=== PATIENT | female | born 1945 | race Caucasian/White ===

== ENCOUNTER 2025-05-07 14:13 | Inpatient (IN) | payer MEDICARE, OTHER ==
[~2025-05-07] VITALS: Ht 157.5 cm; Wt 62.1 kg
[~2025-05-07 14:13] MED LIST: ALENDRONATE SOD70 MG PO; BENZONATATE100 MG PO; GABAPENTIN300 MG PO; JARDIANCE25 MG PO; LEVOTHYROXINE50 MCG PO; LISINOPRIL10 MG PO; PREDNISONE20 MG PO; SIMVASTATIN20 MG PO; VENTOLIN HFA18 GM INH; WELLBUTRIN SR150 MG PO
[2025-05-07 16:12] LABS: BLOOD/HGB, URINE NEGATIVE (Negative); KETONE, URINE >=80 (Negative); LEUK ESTERASE, URINE NEGATIVE (negative); NITRITE, URINE NEGATIVE (negative)
[2025-05-07] MEDS ORDERED: HYDROmorphone HCL 1 MG/ML SYR IV PRN ×2 (16:15→18:30)
[2025-05-07 16:46] LABS: BASOPHILS 0.3 % (0.1-1.2); EOSINOPHILS 0.5 % (0.7-5.8); LYMPHOCYTES 15.6 % (19.3-51.7); MCH 30.1 PG (25.6-32.2); MCHC 32.4 g/dL (32.2-35.5); MCV 93.0 fL (79.4-94.8); MONOCYTES 9.1 % (4.7-12.5); NEUTROPHILS 74.3 % (34.0-71.1); RBC 5.11 M/uL (3.93-5.22)
[2025-05-07 17:04] LABS: ALT (SGPT) 25.0 U/L (14-59); AST (SGOT) 24.0 U/L (15-37); GLOMERULAR FILTRATION RATE,EST 75.0 mL/min (>60); PROTEIN, TOTAL 7.7 g/dL (6.4-8.2); UREA NITROGEN 24.0 mg/dL (7-18)
[2025-05-07] MEDS ORDERED: LIDOCAINE HCL 4% 1 EACH PATCH TD SCH (18:25)
[2025-05-07] MEDS ORDERED: ENOXAPARIN SODIUM 40 MG/0.4 ML SYR SUB-Q SCH (18:26)
[2025-05-07] MEDS ORDERED: DEXTROSE 50% 50 ML SYR IV PRN ×2 (18:30)
[2025-05-07] MEDS ORDERED: DEXTROSE 5% 1,000 ML IV PRN (18:30)
[2025-05-07] MEDS ORDERED: GLUCAGON,HUMAN RECOMBINANT 1 MG/ML VIAL SUB-Q PRN (18:30)
[2025-05-07] MEDS ORDERED: IBLOOD GLUCOSE TEST STRIP 1 EA TEST XX PRN (18:30)
[2025-05-07] MEDS ORDERED: HYDROCODONE/ACETA 5/325 TAB PO PRN (18:30)
[2025-05-07] MEDS ORDERED: LACTATED RINGER'S 1,000 ML IV SCH (18:30)
[2025-05-07] MEDS ORDERED: PROCHLORPERAZINE EDISYLATE 10 MG/2 ML VIAL IV PRN (18:30)
[2025-05-07] MEDS ORDERED: POLYETHYLENE GLYCOL 3350 1 PACKET PO PRN (18:30)
--- NOTE | 2025-05-07 20:02 | NUR ---
PT ARRIVED TO FLOOR FROM ER DURING SHIFT CHANGE. FLOAT RN ADMITTING PT. SAFETY PRECAUTIONS MAINTAINED. CALL LIGHT WITHIN REACH. WILL CONTINUE TO MONITOR.
[2025-05-07 20:44] VITALS: BP 122/62
[2025-05-07 20:46] VITALS: BP 122/62
[2025-05-07] MEDS ORDERED: LIDOCAINE PATCH REMOVAL 1 EA TD SCH (21:00)
[2025-05-07] MEDS ORDERED: INSULIN LISPRO 100 UNIT/ML ML SUB-Q SCH (21:00)
[2025-05-07] MEDS ORDERED: MELATONIN 3 MG TAB PO PRN (21:00)
[2025-05-07] MEDS ORDERED: IBLOOD GLUCOSE TEST STRIP 1 EA TEST VI SCH (21:00)
[2025-05-07] MEDS ORDERED: buPROPion HCL XL 150 MG TAB.XL.24H PO SCH (21:00)
--- NOTE | 2025-05-07 21:00 | NUR ---
PT ASSESSED AND MEDICATIONS GIVEN. VSS. PT STATED PAIN WAS 3/10. PT EDUCATED ON THE USE OF THE INCENTIVE SPIROMETER, PT VERBALIZED AND DEMONSTRATED UNDERSTANDING. PT REQUESTED TO USE A PUREWICK OVERNIGHT, PUREWICK PLACED. LEFT ARM IN SLING, GOOD PERFUSION NOTED IN EXPREMITY. SAFETY PRECAUTIONS MAINTAINED. CALL LIGHT WITHIN REACH. WILL CONTINUE TO MONITOR.
[2025-05-08] VITALS (9 sets, daily range): BP systolic 113–144; BP diastolic 51–68
--- NOTE | 2025-05-08 00:02 | NUR ---
PT ASSISTED TO BATHROOM AND THEN TO THE RECLINER. PT WAS ABLE TO VOID IN TOILET. PT TOLERATED MOVEMENT WELL. SAFETY PRECAUTIONS MAINTAINED. CALL LIGHT WITHIN REACH. WILL CONTINUE TO MONITOR.
[2025-05-08 05:41] LABS: BASOPHILS 0.4 % (0.1-1.2); EOSINOPHILS 0.9 % (0.7-5.8); LYMPHOCYTES 20.6 % (19.3-51.7); MCH 30.8 PG (25.6-32.2); MCHC 32.9 g/dL (32.2-35.5); MCV 93.4 fL (79.4-94.8); MONOCYTES 10.2 % (4.7-12.5); NEUTROPHILS 67.5 % (34.0-71.1); RBC 4.52 M/uL (3.93-5.22)
[2025-05-08 05:51] LABS: GLOMERULAR FILTRATION RATE,EST 89.0 mL/min (>60); UREA NITROGEN 22.0 mg/dL (7-18)
--- NOTE | 2025-05-08 06:22 | NUR ---
PT WAS AWAKE THROUGHOUT ENTIRE SHIFT. PT STATED THAT THEY ARE UP AND AWAKE AT NIGHT AT HOME. VSS. PAIN MANAGED WITH NORCO. PT STATED THAT PAIN WAS MOSTLY A 3/10 WITH THE NORCO. PT SAT IN RECLINER OF THE SHIFT. PT UP SBA TO BATHROOM, VOIDING WELL. IVF INFUSING PER ORDERS. SAFETY PRECAUTIONS MAINTAINED. CALL LIGHT WITHIN REACH. WILL CONTINUE TO MONITOR.
[2025-05-08] MEDS ORDERED: LEVOTHYROXINE SODIUM 50 MCG TAB PO SCH (07:00)
[2025-05-08] MEDS ORDERED: METFORMIN HCL500 MG PO (07:08)
[2025-05-08] MEDS ORDERED: TRAZODONE HCL50 MG PO (07:08)
--- NOTE | 2025-05-08 07:21 | NUR ---
PATIENT AWAKE IN CHAIR WATCHING TV BREATHING EVEN AND UNLABORED. PATIENT LEFT ARM IN SLING ELEVATED BY PILLOW. NO REQUEST AT THIS TIME, CALL LIGHT IN REACH.
[2025-05-08] MEDS ORDERED: TRIAMCINOLONE A80 GM TOP (09:50)
--- NOTE | 2025-05-08 10:24 | NUR ---
PATIENT SITTING UP IN RECLINER, ALERT AND ORINTED. SLING IN PLACE ON LUE ELEVATED WITH PILLOW. LR INFUSING. NO REQUESTS AT THIS TIME. CALL LIGHT IN REACH.
--- NOTE | 2025-05-08 10:56 | NUR ---
PT IN CHAIR, LINEN CHANGE COMPLETED. AM CARE COMPLETED. EXTRA PILLOWS USED FOR PT COMFORT. WARM BLANKET REQUESTED FOR COMFORT. CALL LIGHT WITHIN REACH OF PT, WELL FRESH ICE WATER AND PT'S PHONE. PT REPORTS NEEDING NOTHIN GMORE AT THIS TIME.
--- NOTE | 2025-05-08 11:18 | NUR ---
medications reconciled
[2025-05-08] MEDS ORDERED: PHARMACY RENAL DOSE ADJUSTMENT 1 DOSE MISC PO SCH (12:00)
--- NOTE | 2025-05-08 12:47 | NUR ---
PATIENT UP IN RECLINER EATING LUNCH, WATCHING TV. BED IN SLING ELEVATED WITH A PILLOW. IV FLUIDS RUNNING. NO REQUESTS AT THIS TIME. CALL LIGHT IN REACH.
--- NOTE | 2025-05-08 14:43 | NUR ---
PATIENT UP IN RECLINER, ALERT AND ORIENTED. PATIENT EDUCATED ON IMPORTANCE OF IS USE. PATIENT HAS NO REQUESTS AT THIS TIME. CALL LIGHT IN REACH.
--- NOTE | 2025-05-08 15:05 | NUR ---
PT SITTING IN CHAIR, AWAKE AND ALERT. PT HAS FRESH ICE WATER ON THE TABLE NEAR WHERE SHE IS SITTING. TV OFF, NO VISITORS. CALL LIGHT WITHIN REACH OF PT. PT REPORTSD NEEDING NOTHING MORE AT THIS TIME.
--- NOTE | 2025-05-08 15:09 | NUR ---
LINEN CHANGE COMPLETED, PT IN CHAIR. ROOM CLEANED AND TRASH REMOVED. GOT PT WARM BLANKET, FRESH ICE WATER, AND CALL LIGHT WITHIN REACH OF PT IN CHAIR. PT REPORTS NEEDING NOTHING MORE AT THIS TIME.
--- NOTE | 2025-05-08 17:43 | NUR ---
PATIENT ASSISTED TO THE RESTROOM BY THIS RN. PATIENT HAD A BOWEL MOVEMENT. ASSISTED BACK TO CHAIR. ARM IN SLING ELEVATED ON PILLOW. PATIENT STATES "I AM AFRAID I AM GOING TO GET PNEUMONIA AND " PATIENT REASSURED AND EDUCATED ON THE IMPORTANCE OF IS USE, AFTER EDUCATION PATIENT SEEMED CALM AND RELAXED. NO FURTHER REQUESTS AT THIS TIME. CALL LIGHT IN REACH.
--- NOTE | 2025-05-08 18:07 | NUR ---
PT SITTING IN CHAIR, REPORTED FEELING "OK STILL." TV ON, NO VISITORS IN THE ROOM. PT HAS ICE WATER ON THE TABLE NEXT TO HER CHAIR, AND THE CALL LIGHT WITHIN REACH. PT REPORTED NEEDING NOTHING MORE AT THIS TIME.
--- NOTE | 2025-05-08 18:10 | NUR ---
PT REFUSED A BED BATH OR WARM WASH CLOTH TO THE FACE. PT ALSO REFUSED THIS AMBULANCE DRIVER PARAMEDIC BRUSHING HER HAIR. PT STATED "MAYBE LATER", BUT DURING DAY SHIFT KEP REFUSING WHEN ASKED. PT SITTING IN CHAIR WITH WARM BLANKET FOR COMFORT. CALL LIGHT WITHIN REACH AND NOTHING MORE REQUESTED AT THIS TIME.
--- NOTE | 2025-05-08 19:27 | NUR ---
PATIENT IN RECLINER COMPLAINS OF PAIN IN THE SHOULDER. NORCO GIVEN FOR PAIN (SEE EMAR). VIRIDIANA CHACON IN THE ROOM ASSITING PATIENT TO THE BATHROOM.
--- NOTE | 2025-05-08 19:46 | NUR ---
REPORT RECEIVED FROM YAEL SAUCEDO AND YAEL HE. PATIENT SITTING IN CHAIR, RESPIRATIONS EVEN AND UNLABORED. SHE RATES PAIN AN 8/10, JUST GIVEN PRN PAIN MEDICATION FROM DAYSHIFT RN. WILL REASSESS. NO FURTHER NEEDS AT THIS TIME, CALL LIGHT IN REACH
--- NOTE | 2025-05-08 21:15 | NUR ---
VS OBTAINED AND RECORDED, ASSESSMENT COMPLETED. PATIENT UP IN CHAIR, REPORTS 5/10 PAIN WHICH IS AN IMPROVEMENT FROM PREVIOUS. SHE STATES SHE IS COMFORTABLE IN THE CHAIR AT THIS TIME. RESPIRATIONS EVEN AND UNLABORED, PATIENT IS WEARING A SLING ON THE LEFT ARM. SCHEDULED MEDICATION GIVEN PER ORDER, LIDOCAINE PATCH REMOVED. PATIENT DENIES FURTHER NEEDS AT THIS TIME, CALL LIGHT IN REACH
--- NOTE | 2025-05-08 23:00 | NUR ---
CALL LIGHT ANSWERED, IN ROOM TO ASSIST PATIENT. PATIENT REPORTS ITCHINESS AND REDNESS IN HER GROIN, GROIN ASSESSED, REDNESS NOTED. PATIENT USING MOISTURIZING LOTION ON AREA THAT SHE PREFERS TO APPLY HERSELF. DECLINES OTHER NEEDS, CALL LIGHT IN REACH
--- NOTE | 2025-05-08 23:25 | NUR ---
ASSISTED PATIENT TO THE BATHROOM AND BACK TO CHAIR. PATIENT VOIDED 200ML YELLOW URINE. CALL LIGHT AND SIDE TABLE WITHIN PATIENT'S REACH. ROOM LIGHT OFF PER PATIENT'S REQUEST.
--- NOTE | 2025-05-09 01:50 | NUR ---
ROUNDED ON PATIENT, PATIENT SITTING UPRIGHT IN CHAIR PER REQUEST. SHE REPORTS 8/10 PAIN, PRN PAIN MEDICATION GIVEN PER REQUEST. NEW IV FLUID BAG HUNG. SHE DENIES OTHER NEEDS, CALL LIGHT IN REACH.
--- NOTE | 2025-05-09 02:58 | NUR ---
ROUNDED ON PATIENT, PATIENT AWAKE AND REMAINS IN CHAIR PER HER REQUEST. SHE STATES THAT SHE FEELS THAT HER PAIN IS IMPROVING BUT SHE IS STILL VERY SORE. SHE DENIES ANY NEEDS, CALL LIGHT IN REACH
--- NOTE | 2025-05-09 04:19 | NUR ---
ROUNDED ON PATIENT, PATIENT RESTING WITH EYES CLOSED, RESPRIATIONS EVEN AND UNLABORED. IVF CONTINUING TO INFUSE WITHOUT DIFFICULTY. NO NEEDS IDENTIFIED, CALL LIGHT IN REACH
[2025-05-09 05:21] VITALS: BP 123/60
[2025-05-09 05:36] VITALS: BP 123/60
--- NOTE | 2025-05-09 06:13 | NUR ---
ROUNDED ON PATIENT, PATIENT SITTING UP IN CHAIR PER REQUEST, REPOSITIONED PILLOWS BEHIND BACK FOR COMFORT. RESPIRATIONS EVEN AND UNLABORED. IV WNL, MSK ASSESSMENT UNCHANGED. PATIENT DENIES FURTHER NEEDS, CALL LIGHT IN REACH
--- NOTE | 2025-05-09 06:45 | NUR ---
2 MN FOR VERSALUS-PER BAR POINTER MEETS INPATIENT FOR HYPOXIA SECONDARY TO RIB FRACTURES WITH NEED FOR SUPPLEMENTAL 02 MEDICARE INPT 05/07/25 @ 1827 ORDER MATCHES REG NO AUTH REQUIRED PER MEDICARE GUIDELINES DISCHARGE PENDING FURTHER PT. SNF VS HOME HEALTH
--- NOTE | 2025-05-09 07:40 | NUR ---
VERBAL REPORT RECIEVED BY YAEL AYALA. PATIENT UP IN RECLIENER RESTING, BREATHING EVEN AND UNLABORED. CALL LIGHT IN REACH.
--- NOTE | 2025-05-09 08:45 | NUR ---
MORNING ASSESSMENT AND MEDICATIONS COMPLETE. LEFT ARM IN SLING ELEVATED ON PILLOW. PAIENT COMPLAINS OF LEFT SHOULDER 7/10 PAIN, PAIN MEDICATION GIVEN (SEE EMAR). PATIENT RESTING IN RECLINER, WARM BLANKET PROVIDED PER REQUEST. CALL LIGHT IN REACH.
[2025-05-09 10:02] VITALS: BP 139/66
--- NOTE | 2025-05-09 10:40 | NUR ---
Spoke with Khalida and her Daughter, November. Pt lives in town with spouse in a home without any steps. She does not use any DME. Pt has a brace on her arm/shoulder and has fx ribs. Pt is now on oral pain meds. Discussed with pt PT/OT are recommending a SNF for rehab. Pt begins to cry loudly stating I have to speak with her . Daughter attempts to encourage mom to go to a SNF for a few days. Pt cries louder. Daughter is a nurse at [employer]. I let them know I can return later when the spouse returns. Pt denies any financial or safety concerns.
--- NOTE | 2025-05-09 10:45 | NUR ---
IN ROOM TO CHECK ON PATIENT, PATIENT SITTING IN THE RECLINER. PATIENT TEARFUL DUE TO FEARS OF DISCHARGE. DISCUSSED WITH PATIENT WE WILL TALK TO CASE MANAGEMENT REGARDING POC. FRESH WATER PROVIDED. FAMILY IN THE ROOM. CALL LIGHT IN REACH.
--- NOTE | 2025-05-09 11:00 | NUR ---
PATIENT USES CALL LIGHT FOR ASSITANCE TO THE BATHROOM. PATIENT ASSISTED TO THE BATHROOM BY THIS RN. PATIENT ASSISTED BACK TO RECLINER VIA SBA. LEFT ARM IN SLING, ELEVATED WITH PILLOW. NO FURTHER REQUESTS AT THIS TIME. CALL LIGHT IN REACH.
--- NOTE | 2025-05-09 11:15 | NUR ---
Notified by staff, pts spouse has returned. Returned to the room. Spoke with pt, spouse, and daughter. Pt stating she cannot go home today. I let them know this is up to the Dr. I let them I know I did discuss with the and he planned on dc today if they did not want a SNF. Pt begins crying and stating she cannot go home. I let her know, we are waiting for Dr. Haddad to visit to see what he says. Spouse is very angry and stating, "we are about to go to war". He is requesting I tell Dr. Diego he must admit the pt. I let him know I cannot speak for Dr. Diego or give orders. I let them know I will pass their requests on. We again discussed pt is taking oral pain meds. These can be taken at home. Daughter is now stating she will take a few days off and stay with mom. Spouse states he can assist, but cannot do everything. Spouse remains very angry. I again let them know, I will pass their info on to the
--- NOTE | 2025-05-09 11:30 | NUR ---
Updated Dr. Diego of my conversation. He states he has spoken with the family and let them know he works for the pt as the spouse was angry with him also. He will return at 2 pm to speak with the pt. He will give a dose of IV pain meds and meds for anxiety if needed.
--- NOTE | 2025-05-09 12:37 | NUR ---
PT NOT AVAILABLE FOR VISIT. PROVIDED PRAYER.
--- NOTE | 2025-05-09 13:19 | NUR ---
ICE PACK APPLIED TO LEFT SHOULDER. PT C/O PAIN 01/01, REQUESTING PAIN MEDICATIONS. PT MEDICATED WITH 2 OXYCODONE TABLETS. SITTING UP IN CHAIR, DTR IN ROOM. CHAIR RECLINED, WHEELS LOCKED. CALL MACIEL IN REACH. PT INSTRUCTED TO CALL FOR ASSISTANCE.
[2025-05-09 13:24] VITALS: BP 138/67
--- NOTE | 2025-05-09 14:41 | NUR ---
PATIENT RESTING IN RECLINER, BREATHING EVEN AND UNLABORED. PATIENT FAMILY IN THE ROOM. SLING ON LEFT ARM, ELEVATED ON A PILLOW, ICE APPLIED. CALL LIGHT IN REACH.
--- NOTE | 2025-05-09 14:45 | NUR ---
Spoke with Dr Haddad. He saw this pt and feels she needs two more days of therapy prior to dc. I then saw Khalida's spouse, Sukh. I updated, Dr. Haddad is recommended two more days. He still is not pleases. He stated, "So you're saying I can call off my laywers from suing you." I replied, "you may do whatever you feel you need to do". Daughter denies needs, states, "sorry".
--- NOTE | 2025-05-09 14:50 | NUR ---
Updated Dr. Diego I updated the family. He requests I return to the room with him. Sukh has left. Pt is sleeping as she was given pain meds. Daughter, Dr. Diego, and I spoke. He again updated the daughter Dr. Haddad feels this pt should stay another day or so. Daughter now stating she will take 10 days off to stay with mom. I let her know, ethan will be pts 3rd IP night. If at any time in the next 30 days she changes her mind and wants to go to a SNF, they can call Dr. Vicente and she will be eligible for placement.
--- NOTE | 2025-05-09 15:46 | NUR ---
IN ROOM WITH PATIENT. PATIENT DOES NOT WANT ICE APPLIED AT THIS MOMENT. EDUCATED ON THE IMPORTANCE, WE WILL REAPPLY IN 30 MINUTES. REQUESTING PAIN PILL. DISCUSSED PRN PAIN MEDICATION SCHEDULE. NO FURTHER NEEDS AT THIS TIME. CALL LIGHT IN REACH
--- NOTE | 2025-05-09 16:00 | NUR ---
PATIENT UP IN RECLINER, NO NEEDS AT THIS TIME. CALL LIGHT IN REACH.
--- NOTE | 2025-05-09 17:58 | NUR ---
PATIENT UP IN RECLINER TALKING WITH FAMILY. FRESH ICE PACK APPLIED TO LEFT SHOULDER. PATIENT REPORTS NO PAIN AT THIS TIME. CALL LIGHT IN REACH.
[2025-05-09 18:14] VITALS: BP 123/58
--- NOTE | 2025-05-09 19:37 | NUR ---
REPORT RECEIVED FROM DAY SHIFT RN. PT SITTING IN RECLINER ALERT AND ORIENTED. REPORTS LEFT SIDE PAIN 02/01. PRN FOR PAIN ADMIN PER EMAR. NO FURTHER NEEDS. DAUGHTER IN ROOM. WHITE BOARD UPDATED. CALL LIGHT IN REACH.
[2025-05-09 21:17] VITALS: BP 129/72
--- NOTE | 2025-05-09 21:38 | NUR ---
CALL LIGHT ANSWERED. SBA WITH QUAD CANE TO RESTROOM FOR VOID. pt DENIES ORAL CARE OFFERED. BACK TO CHAIR. ARM ELEVATED ON PILLOW AND IN SLING. NEW ICE PACK PLACED ON L CLAVICLE. VSS. CBG 112. PRIMARY RN AMX NOW IN ROOM.
--- NOTE | 2025-05-09 21:48 | NUR ---
EVENING ASSESSMENT COMPLETE. SCHEDULED MEDS ADMIN PER EMAR. PT REPORTS LEFT SHOULDER/RIB PAIN TOLERABLE 03/03. LEFT ARM IN SLING. ICE PACK IN PLACE. CMS INTACT. BRISK CAP REFILL NOTED. PT REQUESTING TO SLEEP IN RECLINER. BLE ELEVATED. PT DENIES QUESTIONS OR CONCERNS. CALL LIGHT IN REACH.
--- NOTE | 2025-05-10 00:06 | NUR ---
PT SITTING UP IN CHAIR, C/O 8/10 PAIN TO LEFT SHOULDER AND SIDE, REQUESTING PAIN MEDICATION. PT MEDICATED WITH 2 OXYCODONE TABLETS. PT REMAINS IN CHAIR, RECLINED, WHEELS LOCKED. CALL MACIEL IN REACH. INSTRUCTED TO CALL FOR ASSISTANCE
--- NOTE | 2025-05-10 02:11 | NUR ---
PT RESTING IN RECLINER WITH EYES CLOSED. RESPIRATIONS EVEN. BLE ELVATED. LEFT ARM ELEVATED WITH PILLOWS. CALL LIGHT IN REACH.
--- NOTE | 2025-05-10 02:54 | NUR ---
CALL LIGHT ANSWERED. PT UP TO BR WITH QUAD WALKER AND SBA. GAIT STEADY. BACK TO RECLINER. LEFT ARM IN SLING ELEVATED ON PILLOW. ICE PACK PROVIDED. LEGS ELEVATED IN RECLINER. NO FURTHER NEEDS. CALL LIGHT IN REACH.
--- NOTE | 2025-05-10 03:46 | NUR ---
PT REPORTS LEFT SHOULDER/SIDE PAIN 04/03. PRN FOR PAIN ADMIN PER EMAR. NO FURTHER NEEDS.
[2025-05-10 05:31] VITALS: BP 100/51
--- NOTE | 2025-05-10 05:40 | NUR ---
PT RESTING IN RECLINER. AWAKENS EASILY. VS AND I&O OBTAINED. SCHEDULED MEDS ADMIN PER EMAR. PT DENIES NEEDS. CALL LIGHT IN REACH.
[2025-05-10 05:43] VITALS: BP 100/51
--- NOTE | 2025-05-10 07:05 | NUR ---
VERBAL REPORT RECIVED BY YAEL SANTANA. PT UP IN RESTROOM WITH VIRIDIANA SIBLEY IN THE ROOM. NO FURTHER NEEDS AT THIS TIME.
--- NOTE | 2025-05-10 08:20 | NUR ---
IN THE ROOM WITH PATIENT. DISCUSSED PLAN OF CARE WITH PATIENT. PATIENT HAS NO NEEDS AT THIS TIME. DISCUSSED WITH CASE MANAGMENT REGARDING TRANSPORTATION FOR DISCHARGE. PATIENT IN RECLINER, ARM IN SLING ELEVATED ON PILLOW. CALL LIGHT IN REACH.
[2025-05-10 08:49] VITALS: BP 118/55
--- NOTE | 2025-05-10 08:55 | NUR ---
Spoke with Khalida. She is wanting to go home. Daughter is on the phone. I let her know I told her the wrong cane yesterday. Per PT pt needs a quad cane. Daughter will slate picker from [employer]. IMM letter completed. Pt denies further needs. I let her know the van is scheduled for 10:15 for transport home. Pt thanks everyone for their assistance. She appologizes for her spouse is behavior. I assured her it is not an issues.
--- NOTE | 2025-05-10 09:09 | NUR ---
MORNING ASSESSMENT COMPLETE, PATIENT COMPLAINS OF 6/10 LEFT SHOULDER PAIN. PAIN MEDICATION GIVEN (PER EMAR). CASE MANAGEMENT DISCUSSING POC WITH PATIENT. VIRIDIANA GARNICA APPLIES FRESH ICE PACK ON LEFT SHOULDER. LEFT ARM IN SLING, ELEVATED ON PILLOW. NO FURTHER NEEDS AT THIS TIME. CALL LIGHT IN REACH.
[2025-05-10] MEDS ORDERED: HYDROCODON-ACE1 EA10 PO (09:43)
--- NOTE | 2025-05-10 10:00 | NUR ---
IN THE ROOM PATIENT DAUGHTER EXPRESSES CONCERN ABOUT PATIENT NOT RECIVING IV TORADOL. NOTFIED, VERBAL ORDERS RECIVED FOR ONE TIME IV PAIN MEDICATION. DAUGHTER DENIED NEW ORDERS DUE TO PATIENT APPEARING COMFORTABLE. DAUGHTER WAS CONCERNED DUE TO INSURANCES PURPOSES. GUY KEMP, ASSISTING PATIENT GETTING READY TO DISCHARGE.
[2025-05-10] MEDS ORDERED: ALPRAZOLAM1 MG PO (10:18)
--- NOTE | 2025-05-11 13:46 | NUR ---
RECEIVED CALL FROM DAUGHTER, NOVEMBER. PATIENT WAS TOLD SHE WOULD BE DC'D WITH HOME HEALTH. INFORMED DAUGHTER HOME HEALTH HAS UP TO 2 WEEKS TO SCHEDULE APPOINTMENTS, BUT WILL ENSURE IT HAS BEEN SET UP. NO REFERRAL NOTED IN THE CHART. REFERRAL FOR HOME HEALTH FAXED TO [facility].
== END 2025-05-10 10:10 | disposition home or self-care (01) | DRG 183 ==
LOC: ED 14:13 → MS 18:27
PROVIDERS: Emergency Medicine; ADMIT Student in an Organized Health Care Education/Training Program; ATTEND Student in an Organized Health Care Education/Training Program
DX: S22.42XA Multiple fractures of ribs, left side, initial encounter for closed fracture (principal); J96.01 Acute respiratory failure with hypoxia; S22.061A Stable burst fracture of T7-T8 vertebra, initial encounter for closed fracture; S42.032A Displaced fracture of lateral end of left clavicle, initial encounter for closed fracture; Z99.81 Dependence on supplemental oxygen; E03.9 Hypothyroidism, unspecified; F32.9 Major depressive disorder, single episode, unspecified; E11.22 Type 2 diabetes mellitus with diabetic chronic kidney disease; I12.9 Hypertensive chronic kidney disease with stage 1 through stage 4 chronic kidney disease, or unspecified chronic kidney disease; N18.9 Chronic kidney disease, unspecified; E78.5 Hyperlipidemia, unspecified; M81.0 Age-related osteoporosis without current pathological fracture; F41.9 Anxiety disorder, unspecified; R91.1 Solitary pulmonary nodule; E78.00 Pure hypercholesterolemia, unspecified; J20.9 Acute bronchitis, unspecified; Z79.890 Hormone replacement therapy; Z90.49 Acquired absence of other specified parts of digestive tract; Z79.899 Other long term (current) drug therapy; W18.30XA Fall on same level, unspecified, initial encounter
CPT/HCPCS: 36415; 51702; 70450; 71101; 71250; 73030; 80048; 80053; 81003; 83735; 85025; 96374; 97162; 97167; 97530; 97535; 99285-25; A9270; J1171; J1650; J1815; J7121; U0002

== ENCOUNTER 2025-07-08 05:55 | Day surgery (SDC) | payer MEDICARE, OTHER ==
[~2025-07-08] VITALS: Ht 157.5 cm; Wt 64.0 kg
--- NOTE | ~2025-07-08 | OR ---
[facility] [address], [place] [address] Draft DATE OF OPERATION: 07/08/2025 SURGEON: Glynn Galaviz MD PREOPERATIVE DIAGNOSES: 1. 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 2. Anxiety. POSTOPERATIVE DIAGNOSES: 1. 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 2. Anxiety. PROCEDURE: Right partial mastectomy (re-excision) right medial breast tissue. ANESTHESIA: General LMA; Madelyn Ding [employer] DESIGNER and local 10 mL of 0.25% Marcaine with epinephrine. INDICATION: This 79-year-old white woman is a patient of Dr. Azeb Vicente and recently underwent right partial mastectomy with sentinel lymph node biopsy by oh on June 16, 2025. The patient has an underlying significant anxiety disorder it is noted. Pathology report showed negative sentinel lymph node for metastatic disease and the lesion in question in the right breast showed invasive moderately differentiated infiltrating ductal carcinoma with low-grade ductal carcinoma in situ. Additional right-sided breast mass excision showed fibrofatty tissue negative for atypia. Margin status was positive on the excision of the tumor noted to be in the medial aspect for length of 1 mm. On the basis of need for a pathologically negative margin re-excision of breast tissue has been recommended. The risk of bleeding, infection, cosmetic deformity, and so forth were reviewed with her and her daughter, they understand and wished to proceed. FINDINGS: There was a seroma cavity in the medial aspect of the right breast. Excision of most of the skin and some amount of the previous cavity and additional tissue medial in the right breast was accomplished. A quilting closure type was used to diminish the space rather than a drain as the patient would be unlikely tolerant of that from an anxiety standpoint. PATIENT NAME: SABINO MARTINS OPERATIVE REPORT DATE OF : 49 REPORT #: [id number] PHYSICIAN: GLYNN GALAVIZ MD PCP: AZEB VICENTE MD REPORT IS CONFIDENTIAL AND NOT TO BE RELEASED WITHOUT AUTHORIZATION [facility] [address], [place] [address] Draft DESCRIPTION OF PROCEDURE: The patient was brought to the operating room, given a general LMA type anesthetic. Preoperative antibiotic Ancef was given and sequential compression device stockings used. The right breast was prepared with a chlorhexidine solution and draped sterilely. The incision was in the inframammary crease in the medial aspect. The area was marked with a pen. An elliptical incision was made incorporating essential all of the previous skin incision and extended more medially to normal breast parenchyma. Upon opening of the elliptical incision a seroma cavity was encountered and madelyn fluid was suctioned free. Wide resection was undertaken with electrocautery including more medial soft tissue. A portion of the biopsy cavity was excised in continuity. Irrigation was undertaken. Hemostasis was assured with electrocautery. Specimen was oriented with a short stitch, a single stitch medial and two stitches in the lateral position for orientation. Rather than placing a drain, which I would ordinarily do with the seroma cavity a quilting technique via overlying flap to underlying pectoralis was undertaken, closing the space quite markedly. The parenchyma that remained in the superior portion was secured to the parenchyma inferiorly with interrupted 2-0 Vicryl as well. The skin was closed with running subcuticular 3-0 Vicryl Steri-Strips were applied as was an Acticoat dressing. Blood loss was minimal. Complications none. MD ABDULAZIZ Esquivel/DOUGLAS /[id number] cc: zAeb Vicente MD Copies: ~ PATIENT NAME: SABINO MARTINS BELA OPERATIVE REPORT DATE OF : 49 REPORT #: [id number] PHYSICIAN: GLYNN GALAVIZ MD PCP: AZEB VICENTE MD REPORT IS CONFIDENTIAL AND NOT TO BE RELEASED WITHOUT AUTHORIZATION
[~2025-07-08 05:55] MED LIST changes: +ACETAMINOPHEN500 MG PO; +ALPRAZOLAM1 MG PO; +HYDROCODON-ACE1 EA10 PO; +IBUPROFEN600 MG PO; +LACTATED RINGER'S 1,000 ML IV SCH; +METFORMIN HCL500 MG PO; +OXYCODON-ACETA1 EAC2 PO; +TRAZODONE HCL50 MG PO; +TRIAMCINOLONE A80 GM TOP; +VITAMIN B12500 MCG PO; +VITAMIN B2100 MG PO; +VITAMIN D350 MCG PO
[2025-07-08 06:10] VITALS: BP 121/50
[2025-07-08] MEDS ORDERED: IBLOOD GLUCOSE TEST STRIP 1 EA TEST VI PRN (07:00)
[2025-07-08] MEDS ORDERED: LIDOCAINE HCL 1% 5 ML SDV INJ ONE (07:00)
[2025-07-08] MEDS ORDERED: MIDAZOLAM HCL 2 MG/2 ML VIAL ONE (07:27)
[2025-07-08] MEDS ORDERED: LIDOCAINE HCL 2% 5 ML SDV ONE (07:27)
[2025-07-08] MEDS ORDERED: fentaNYL citrate 100 MCG/2 ML VIAL ONE (07:27)
[2025-07-08] MEDS ORDERED: CEFAZOLIN SOD 1,000 MG/10 ML VIAL ONE (08:02)
[2025-07-08] MEDS ORDERED: ACETAMINOPHEN 500 MG TAB PO PRN (08:45)
[2025-07-08] MEDS ORDERED: NALOXONE HCL 0.4 MG SYR IV PRN (08:45)
[2025-07-08] MEDS ORDERED: LACTATED RINGER'S 1,000 ML IV SCH (08:45)
[2025-07-08] MEDS ORDERED: OXYCODONE/APAP 7.5/325 TAB PO PRN (08:45)
[2025-07-08] MEDS ORDERED: IBUPROFEN 600 MG TAB PO PRN (08:45)
--- NOTE | 2025-07-08 08:50 | NUR ---
07/08/25 0850 Glo Leyva 0888 PT ARRIVED TO PACU WITH ORAL AIRWAY AND 6L VIA MASK IN PLACE. RESP EVEN AND UNLABORED AND VSS.
[2025-07-08 09:19] VITALS: BP 114/48
--- NOTE | 2025-07-08 09:29 | NUR ---
0920-PT BACK TO ROOM FROM PACU ON . RECEIVED REPORT FROM NICKIE CONLEY. PT IS DROWSY. RESP EVEN AND UNLABORED. RATES PAIN 8/10, DENIES NAUSEA. PT TAKING SIPS OF WATER AND EATING A CRACKER. DAUGHTER AT BEDSIDE. CALL LIGHT WITHIN REACH. 0930-PAIN MEDICATIONS GIVEN PER EMAR.
[2025-07-08 10:21] VITALS: BP 123/60
--- NOTE | 2025-07-08 10:43 | NUR ---
LE 1014-PT UP TO RESTROOM. GAIT STEADY AND TOLERATED WELL. PT ABLE TO VOID 250ML OF YELLOW URINE. LE 1020-PT BACK TO ROOM. PT LAYING IN BED. RESP EVEN AND UNLABORED. DAUGHTER IN ROOM WITH PT. LE 1023-PT READY TO GO HOME. PT WILL GET DRESSED WITH THE HELP OF HER DAUGHTER. CALL LIGHT WITH IN REACH.
--- NOTE | 2025-07-08 10:49 | NUR ---
1031-WENT OVER DISCHARGE INSTRUCTIONS WITH PT AND DAUGHTER. RATES PAIN 12/02. NO RX GIVEN TODAY PT ALREADY HAS PAIN MEDICATION AT HOME. RIDE PROVIDED TO FRONT OF HOSPITAL WHERE DAUGHTER WAS WAITING WITH THE CAR.
[2025-07-08] MEDS ORDERED: SEVOFLURANE 250 ML BTL INH ONE (14:39)
--- NOTE | 2025-07-11 10:04 | PATH ---
[facility] [address], [place] [address] Signed SPECIMEN(S): A RIGHT BREAST SPECIMEN SOURCE: A. RIGHT BREAST CLINICAL HISTORY: Primary CA of right breast FINAL PATHOLOGIC DIAGNOSIS: Right reexcision of breast per requisition: - Benign skin and breast tissue with extensive fat necrosis, fibrosis, and chronic/histiocytic inflammation - Negative for residual in situ or invasive carcinoma BB MICROSCOPIC EXAMINATION: Histologic sections of all submitted blocks are examined by light microscopy. These findings, together with the gross examination, support the pathologic diagnosis. GROSS DESCRIPTION: The specimen, labeled and designated "Bebeto DianeLeighton, right reexcision of breast per requisition," is received in formalin and consists of a 34 g, 7 cm superior to inferior, 5.8 cm medial to lateral, 3.4 cm anterior to posterior portion of yellow lobulated fibroadipose tissue. The specimen is oriented as follows: Single stitch�medial, double stitch�lateral. On the anterior aspect there is a 6.1 x 1.7 cm portion of quinonez skin with a central 3.2 cm in length scar. Additionally there is a 6.7 x 4.2 x 3 cm previous excision cavity filled with chalky necrosis. The specimen is inked as follows: Superior�blue,, inferior�green, medial�red, lateral�orange, anterior (surrounding skin)�yellow, posterior�black, cavity�sammie. Of note on the posterior aspect there is a 2.3 x 1.3 cm central defect present. The specimen is serially sectioned from medial to lateral in 12 slices. There is some chalky necrosis within the biopsy cavity, but no discrete masses or lesions. The background parenchyma is comprised of 60% yellow lobulated adipose and 40% white-pink fibrous tissue. No biopsy cavity is identified. The specimen is entirely submitted as follows: Cassette Summary: PATIENT NAME: SABINO MARTINS PATHOLOGY DATE OF : 49 REPORT #: [id number] PHYSICIAN: ASHLEY PATHOLOGY PCP: EVELYN CABRERA MD REPORT IS CONFIDENTIAL AND NOT TO BE RELEASED WITHOUT AUTHORIZATION [facility] [address], [place] [address] Signed (A1) medial margin, slice 1, serially sectioned (A2-A3) slice 2 (A4-A5) slice 3 (A6-A7) slice 4 (A8) slice 5 (A9-A11) slice 6 (A12-A13) slice 7 (A14-A15) slice 8 (A16-A17) slice 9 (A18-A19) slice 10 (A20-A21) slice 11 (A22) lateral margin, slice 12, serially sectioned Time of collection: 8:15 AM 07/08/2025. Time into formalin: 8:21 AM 07/08/2025. Processor load time: 10 PM 07/08/2025. Ischemic time: 6 minutes Total fixation time in formalin: 13 hours 39 minutes The ASCO/CAP guidelines related to HER2 and hormone receptor testing in breast specimens have been met and the specimen has been placed in formalin within one hour and fixed in 10% neutral buffered formalin for 6 to 72 hours. AA (under the direct supervision of a pathologist) The Gross Description was prepared using a voice recognition system. The report was reviewed for accuracy; however, sound-alike word errors, addition and/or deletions may occur. If there is any question about this report, please contact Client Services. ADDITIONAL NOTES: Immunohistochemical and/or in situ hybridization studies if performed in this case included appropriate positive controls that reacted as expected. This test was developed and its performance characteristics determined by [facility]. It has not been cleared or approved by the U.S. Food and Drug Administration. The FDA has determined that such clearance or approval is not necessary. This test is used for clinical purposes. It should not be regarded as investigational or for research. [facility] is certified under the Clinical Laboratory Improvement Amendments of 1988 (CLIA) as qualified to perform high complexity clinical laboratory testing. PERFORMING LABORATORY: PATIENT NAME: SABINO MARTINS [facility] DATE OF : 49 REPORT #: [id number] PHYSICIAN: SORENWelcome Real-time RAMONITA PCP: EVELYN CABRERA MD REPORT IS CONFIDENTIAL AND NOT TO BE RELEASED WITHOUT AUTHORIZATION [facility] [address] [place], [place] [address] Signed Technical component was performed by [facility], [address] [place] [id number] (CLIA# [id number]). Professional interpretation was performed by [facility] - [address] [place] [id number] (CLIA#: [id number]). Diagnostician: Tree Akhtar MD Pathologist Electronically Signed 07/11/2025 Copies: ~ PATIENT NAME: WHITE EARTHSABINO PATHOLOGY DATE OF : 49 REPORT #: [id number] PHYSICIAN: ASHLEY PATHOLOGY PCP: EVELYN CABRERA MD REPORT IS CONFIDENTIAL AND NOT TO BE RELEASED WITHOUT AUTHORIZATION
== END 2025-07-08 10:31 | disposition home or self-care (01) ==
LOC: DS 05:55
PROVIDERS: ATTEND Surgery
PROC: 0HBT0ZZ Excision of Right Breast, Open Approach (ICD-10-PCS; principal; 2025-07-08 07:30)
DX: C50.911 Malignant neoplasm of unspecified site of right female breast (principal); Z17.0 Estrogen receptor positive status [ER+]; Z17.21 Progesterone receptor positive status; N60.31 Fibrosclerosis of right breast; N64.1 Fat necrosis of breast; F41.9 Anxiety disorder, unspecified; I10 Essential (primary) hypertension; E11.9 Type 2 diabetes mellitus without complications; E03.9 Hypothyroidism, unspecified; E78.5 Hyperlipidemia, unspecified; Z79.890 Hormone replacement therapy; Z79.84 Long term (current) use of oral hypoglycemic drugs; Z79.899 Other long term (current) drug therapy; Z90.49 Acquired absence of other specified parts of digestive tract
CPT/HCPCS: J0690; J2003; J2250; J2405; J2704; J3010; J7121